=== PATIENT | female | born 1985 | race African-American/Black ===

== ENCOUNTER 2018-11-03 16:50 | Emergency (ER) | payer SELFPAY ==
[~2018-11-03] VITALS: Ht 167.6 cm; Wt 61.0 kg
[2018-11-03] MEDS ORDERED: ONDANSETRON HCL 4MG/2ML INJ IV STA (17:29)
[2018-11-03] MEDS ORDERED: SODIUM CHLORIDE 0.9% 1,000 ML IV ONE (17:29)
[2018-11-03] MEDS ORDERED: MORPHINE SULFATE 4 MG/ML CPJ (NOT FOR IM USE) IV STA (17:29)
[2018-11-03 17:52] LABS: BASOPHILS % 0.3 % (0.0-2.0); EOSINOPHILS % 0.3 % (0.0-5.0); HEMATOCRIT. 30.4 % (36.0-48.0); LYMPHOCYTES % 10.1 % (20.0-50.0); MEAN CORPUSCULAR HEMOGLOBIN 26.2 pg (28.0-32.0); MEAN CORPUSCULAR VOLUME 79.6 fL (81.0-99.0); MEAN PLATELET VOLUME 6.8 fl (7.4-10.4); MONOCYTES % 5.6 % (2.0-8.0); NEUTROPHILS % 83.7 % (40.0-76.0); PLATELET 325 x1000/uL (130-400); RED BLOOD CELL COUNT 3.82 mill/uL (4.2-5.4); RED CELL DISTRIBUTION WIDTH 14.2 % (11.6-14.6)
[2018-11-03 17:58] LABS: CHLORIDE 107 mEq/L (98-107); INR 1.1; PROTHROMBIN TIME 10.9 sec (9.1-11.1)
[2018-11-03 17:59] LABS: HCG SCREEN NEGATIVE
[2018-11-03 18:54] LABS: CLARITY URINE CLOUDY (CLEAR); COLOR URINE YELLOW (YELLOW); KETONES URINE NEGATIVE (NEGATIVE); LEUKOCYTE ESTERASE URINE NEGATIVE (NEGATIVE); NITRITE URINE NEGATIVE (NEGATIVE); OCCULT BLOOD URINE 3+ (NEGATIVE); PH URINE 8.5 (4.5-8.0); PROTEIN URINE NEGATIVE (NEGATIVE); SPECIFIC GRAVITY URINE 1.006 (1.005-1.030); UROBILINOGEN URINE 0.2 E.U./dL (0.2-1.0)
[2018-11-03] MEDS ORDERED: MORPHINE SULFATE 4 MG/ML CPJ (NOT FOR IM USE) IV ONE (20:15)
[2018-11-03] MEDS ORDERED: ONDANSETRON HCL 4MG/2ML INJ IV ONE (20:15)
[2018-11-03] MEDS ORDERED: KETOROLAC 30MG/ML VIAL IV ONE (20:15)
[2018-11-03 21:12] VITALS: BP 115/55
== END 2018-11-03 21:13 | disposition home or self-care (01) ==
LOC: ER 16:50
DX: N30.90 Cystitis, unspecified without hematuria (principal); N23 Unspecified renal colic; D17.9 Benign lipomatous neoplasm, unspecified
CPT/HCPCS: 36415; 74176; 80053; 81003; 83690; 84703; 85025; 85610; 96361; 96374; 96375; 96376; 99284; J1885; J2270; J2405; J7030

== ENCOUNTER 2019-06-27 13:39 | Emergency (ER) | payer MEDICAID ==
[~2019-06-27] VITALS: Ht 165.1 cm; Wt 61.0 kg
[2019-06-27] MEDS ORDERED: MORPHINE SULFATE 4 MG/ML CPJ (NOT FOR IM USE) IV STA (15:02)
[2019-06-27] MEDS ORDERED: KETOROLAC 30MG/ML VIAL IV STA (15:02)
[2019-06-27] MEDS ORDERED: ONDANSETRON HCL 4MG/2ML INJ IV STA (15:02)
[2019-06-27] MEDS ORDERED: SODIUM CHLORIDE 0.9% 1,000 ML IV ONE (15:02)
[2019-06-27] MEDS ORDERED: FAMOTIDINE 20MG/2ML VIAL IV STA (15:02)
[2019-06-27 15:35] LABS: CHLORIDE 105 mEq/L (98-107)
[2019-06-27 15:36] LABS: INR 1.1; PROTHROMBIN TIME 11.4 sec (9.6-11.0)
[2019-06-27 15:37] LABS: HCG SCREEN NEGATIVE
[2019-06-27 15:38] LABS: ETHANOL BLOOD < 10 mg/dL
[2019-06-27 15:44] LABS: HEMATOCRIT. 27.5 % (36.0-48.0); HEMOGLOBIN. 8.5 g/dL (12.0-16.0); MEAN CORPUSCULAR HEMOGLOBIN 19.1 pg (28.0-32.0); MEAN CORPUSCULAR VOLUME 61.9 fL (81.0-99.0); MEAN PLATELET VOLUME 7.1 fl (7.4-10.4); PLATELET 382 x1000/uL (130-400); RED BLOOD CELL COUNT 4.43 mill/uL (4.2-5.4); RED CELL DISTRIBUTION WIDTH 18.5 % (11.6-14.6)
[2019-06-27 15:45] LABS: CLARITY URINE CLEAR (CLEAR); COLOR URINE YELLOW (YELLOW); KETONES URINE TRACE (NEGATIVE); LEUKOCYTE ESTERASE URINE NEGATIVE (NEGATIVE); NITRITE URINE NEGATIVE (NEGATIVE); OCCULT BLOOD URINE NEGATIVE (NEGATIVE); PH URINE 7.5 (4.5-8.0); PROTEIN URINE 1+ (NEGATIVE); SPECIFIC GRAVITY URINE 1.032 (1.005-1.030); UROBILINOGEN URINE 0.2 E.U./dL (0.2-1.0)
[2019-06-27 16:11] LABS: PLATELET ESTIMATE NORMAL
[2019-06-27 18:15] VITALS: BP 126/74
[2019-06-27 23:19] LABS: *AMPHETAMINES SCREEN URINE NEGATIVE (NEGATIVE)
[2019-06-27 23:20] LABS: *BARBITURATES SCREEN URINE NEGATIVE (NEGATIVE); *BENZODIAZEPINES SCREEN URINE NEGATIVE (NEGATIVE)
[2019-06-27 23:21] LABS: *COCAINE SCREEN URINE NEGATIVE (NEGATIVE); METHADONE URINE SCREEN NEGATIVE (NEGATIVE)
[2019-06-27 23:23] LABS: OPIATES URINE SCREEN NEGATIVE (NEGATIVE); PHENCYCLIDINE URINE SCREEN NEGATIVE (NEGATIVE)
[2019-06-27 23:28] LABS: CANNABINOID URINE SCREEN PRESUMTIVE POSITIVE (NEGATIVE)
== END 2019-06-27 18:16 | disposition home or self-care (01) ==
LOC: ER 13:39
DX: R10.2 Pelvic and perineal pain (principal); R11.2 Nausea with vomiting, unspecified; E87.6 Hypokalemia; D64.9 Anemia, unspecified
CPT/HCPCS: 36415; 74176; 80053; 80305; 80320; 81003; 81025; 83690; 84703; 85025; 85610; 96361; 96374; 96375; 99284; J1885; J2405; J3490; J7030; J2270; G0480

== ENCOUNTER 2019-08-18 06:15 | Emergency (ER) | payer MEDICAID ==
[~2019-08-18] VITALS: Ht 165.1 cm; Wt 61.0 kg
[2019-08-18] MEDS ORDERED: KETOROLAC 30MG/ML VIAL IV STA (07:14)
[2019-08-18 07:55] LABS: HEMATOCRIT. 25.5 % (36.0-48.0); HEMOGLOBIN. 7.9 g/dL (12.0-16.0); MEAN CORPUSCULAR HEMOGLOBIN 19.2 pg (28.0-32.0); MEAN CORPUSCULAR VOLUME 62.2 fL (81.0-99.0); MEAN PLATELET VOLUME 6.6 fl (7.4-10.4); PLATELET 402 x1000/uL (130-400); RED BLOOD CELL COUNT 4.09 mill/uL (4.2-5.4); RED CELL DISTRIBUTION WIDTH 20.6 % (11.6-14.6)
[2019-08-18] MEDS ORDERED: ONDANSETRON HCL 4MG/2ML INJ IV ONE (08:00)
[2019-08-18 08:01] LABS: CHLORIDE 108 mEq/L (98-107)
[2019-08-18 08:04] LABS: CLARITY URINE TURBID (CLEAR); COLOR URINE YELLOW (YELLOW); KETONES URINE NEGATIVE (NEGATIVE); LEUKOCYTE ESTERASE URINE NEGATIVE (NEGATIVE); NITRITE URINE NEGATIVE (NEGATIVE); OCCULT BLOOD URINE NEGATIVE (NEGATIVE); PH URINE 8.5 (4.5-8.0); PROTEIN URINE NEGATIVE (NEGATIVE); SPECIFIC GRAVITY URINE 1.019 (1.005-1.030); UROBILINOGEN URINE 0.2 E.U./dL (0.2-1.0)
[2019-08-18] MEDS ORDERED: ONDANSETRON HCL 4MG/2ML INJ IV STA (08:31)
[2019-08-18] MEDS ORDERED: MORPHINE SULFATE 4 MG/ML CPJ (NOT FOR IM USE) IV STA (08:31)
[2019-08-18 08:33] LABS: PLATELET ESTIMATE INCREASED
[2019-08-18 09:24] VITALS: BP 119/80
== END 2019-08-18 09:27 | disposition home or self-care (01) ==
LOC: ER 06:15
DX: D25.9 Leiomyoma of uterus, unspecified (principal); D64.9 Anemia, unspecified; Z98.890 Other specified postprocedural states
CPT/HCPCS: 36415; 76830; 76856; 80053; 81003; 81025; 83690; 85025; 96374; 96375; 99284; J1885; J2270; J2405; Z7610

== ENCOUNTER 2020-01-12 15:15 | Emergency (ER) | payer MEDICAID ==
[~2020-01-12] VITALS: Ht 165.1 cm; Wt 70.0 kg
[2020-01-12 15:18] VITALS: BP 115/70
[2020-01-12] MEDS ORDERED: IBUPROFEN 600MG TABLET PO ONE (16:00)
== END 2020-01-12 16:46 | disposition home or self-care (01) ==
LOC: ER 15:15
DX: R05 Cough (principal); Z20.828 Contact with and (suspected) exposure to other viral communicable diseases
CPT/HCPCS: 71045; 99284; U0003

== ENCOUNTER 2021-01-08 12:28 | Emergency (ER) | payer MEDICAID ==
[~2021-01-08] VITALS: Ht 165.1 cm; Wt 64.0 kg
[2021-01-08] MEDS ORDERED: PEN G BENZ/PEN G PROCAINE CR 1.2 MMU/2 ML IM ONE (13:15)
[2021-01-08 14:19] LABS: HEMATOCRIT. 28.5 % (36.0-48.0); HEMOGLOBIN. 8.9 g/dL (12.0-16.0); MEAN CORPUSCULAR HEMOGLOBIN 19.4 pg (28.0-32.0); MEAN CORPUSCULAR VOLUME 62.1 fL (81.0-99.0); MEAN PLATELET VOLUME 6.9 fl (7.4-10.4); PLATELET 418 x1000/uL (130-400); RED BLOOD CELL COUNT 4.59 mill/uL (4.2-5.4); RED CELL DISTRIBUTION WIDTH 18.6 % (11.6-14.6)
[2021-01-08 14:22] LABS: CLARITY URINE CLOUDY (CLEAR); COLOR URINE YELLOW (YELLOW); KETONES URINE NEGATIVE (NEGATIVE); LEUKOCYTE ESTERASE URINE NEGATIVE (NEGATIVE); NITRITE URINE NEGATIVE (NEGATIVE); OCCULT BLOOD URINE NEGATIVE (NEGATIVE); PROTEIN URINE NEGATIVE (NEGATIVE); SPECIFIC GRAVITY URINE 1.009 (1.005-1.030); UROBILINOGEN URINE 0.2 E.U./dL (0.2-1.0)
[2021-01-08 14:25] LABS: CHLORIDE 107 mEq/L (98-107)
[2021-01-08] MEDS ORDERED: VISCOUS LIDOCAINE 2% 15 ML UDC MM PRN (14:45)
[2021-01-08 15:01] VITALS: BP 119/76
[2021-01-08 15:10] LABS: NUCLEATED RED BLOOD CELLS 1 /100 WBC; PLATELET ESTIMATE SLIGHTLY INCREASED
== END 2021-01-08 15:28 | disposition home or self-care (01) ==
LOC: ER 12:28
DX: R55 Syncope and collapse (principal); J02.8 Acute pharyngitis due to other specified organisms
CPT/HCPCS: 36415; 80053; 81003; 82962; 85025; 93005; 96372; 99284; J0558

== ENCOUNTER 2021-06-21 21:40 | Emergency (ER) | payer MEDICAID ==
[~2021-06-21] VITALS: Ht 162.6 cm; Wt 69.0 kg
[2021-06-21] MEDS ORDERED: MORPHINE SULFATE 4 MG/ML CPJ (NOT FOR IM USE) IV STA (23:33)
[2021-06-21] MEDS ORDERED: ONDANSETRON HCL 4MG/2ML INJ IV STA (23:33)
[2021-06-21] MEDS ORDERED: SODIUM CHLORIDE 0.9% 1,000 ML IV ONE (23:45)
[2021-06-22 00:03] LABS: BASOPHILS % 0.2 % (0.0-2.0); EOSINOPHILS % 0.1 % (0.0-5.0); HEMATOCRIT. 37.7 % (36.0-48.0); HEMOGLOBIN. 12.5 g/dL (12.0-16.0); LYMPHOCYTES % 8.3 % (20.0-50.0); MEAN CORPUSCULAR HEMOGLOBIN 27.6 pg (28.0-32.0); MEAN CORPUSCULAR VOLUME 83.2 fL (81.0-99.0); MEAN PLATELET VOLUME 7.2 fl (7.4-10.4); MONOCYTES % 4.9 % (2.0-8.0); NEUTROPHILS % 86.5 % (40.0-76.0); PLATELET 324 x1000/uL (130-400); RED BLOOD CELL COUNT 4.53 mill/uL (4.2-5.4); RED CELL DISTRIBUTION WIDTH 13.6 % (11.6-14.6)
[2021-06-22 00:14] LABS: CHLORIDE 107 mEq/L (98-107)
[2021-06-22 00:15] LABS: HCG SCREEN NEGATIVE
[2021-06-22 00:48] LABS: CLARITY URINE CLEAR (CLEAR); COLOR URINE YELLOW (YELLOW); KETONES URINE NEGATIVE (NEGATIVE); LEUKOCYTE ESTERASE URINE NEGATIVE (NEGATIVE); NITRITE URINE NEGATIVE (NEGATIVE); OCCULT BLOOD URINE 1+ (NEGATIVE); PH URINE 7.5 (4.5-8.0); PROTEIN URINE NEGATIVE (NEGATIVE); SPECIFIC GRAVITY URINE 1.006 (1.005-1.030); UROBILINOGEN URINE 0.2 E.U./dL (0.2-1.0)
[2021-06-22] MEDS ORDERED: IBUP-2029 MT (03:25)
[2021-06-22 03:45] VITALS: BP 119/66
== END 2021-06-22 03:58 | disposition home or self-care (01) ==
LOC: ER 21:40
DX: D25.0 Submucous leiomyoma of uterus (principal); N83.209 Unspecified ovarian cyst, unspecified side
CPT/HCPCS: 36415; 74176; 76830; 76856; 80053; 81003; 81025; 83605; 83690; 84703; 85025; 93005; 96361; 96374; 96375; 99285; J2270; J2405; J7030

== ENCOUNTER 2022-07-04 06:13 | Emergency (ER) | payer MEDICAID, OTHER ==
[~2022-07-04] VITALS: Ht 165.1 cm; Wt 86.0 kg
[~2022-07-04 06:13] MED LIST: IBUP-2029 MT
[2022-07-04] MEDS ORDERED: TOPUD PO (07:43)
[2022-07-04 10:21] LABS: BASOPHILS % 0.4 % (0.0-2.0); EOSINOPHILS % 0.6 % (0.0-5.0); HEMATOCRIT. 30.4 % (36.0-48.0); HEMOGLOBIN. 9.5 g/dL (12.0-16.0); LYMPHOCYTES % 51.7 % (20.0-50.0); MEAN CORPUSCULAR VOLUME 70.1 fL (81.0-99.0); MEAN PLATELET VOLUME 7.1 fl (7.4-10.4); MONOCYTES % 11.1 % (2.0-8.0); NEUTROPHILS % 36.2 % (40.0-76.0); PLATELET 364 x1000/uL (130-400); RED BLOOD CELL COUNT 4.34 mill/uL (4.2-5.4); RED CELL DISTRIBUTION WIDTH 16.7 % (11.6-14.6)
[2022-07-04 10:30] LABS: CHLORIDE 105 mEq/L (98-107)
[2022-07-04 11:07] LABS: HCG SCREEN NEGATIVE
[2022-07-04] MEDS ORDERED: ONDANSETRON 4MG ODT PO ONE (11:45)
[2022-07-04] MEDS ORDERED: ALBU6.7H3 INH (12:17)
[2022-07-04] MEDS ORDERED: ONDA4TAB11 PO (12:17)
[2022-07-04] MEDS ORDERED: IMOD MT (12:17)
[2022-07-04] MEDS ORDERED: GUAI600T26 MT (12:17)
[2022-07-04] MEDS ORDERED: IBUP-2029 MT (12:17)
[2022-07-04 12:37] VITALS: BP 110/67
== END 2022-07-04 12:39 | disposition home or self-care (01) ==
LOC: ER 06:13
DX: R55 Syncope and collapse (principal); J06.9 Acute upper respiratory infection, unspecified; R11.2 Nausea with vomiting, unspecified; R19.7 Diarrhea, unspecified; J02.9 Acute pharyngitis, unspecified; D64.9 Anemia, unspecified; Z79.899 Other long term (current) drug therapy
CPT/HCPCS: 36415; 71045; 80053; 83690; 84703; 85025; 99284; Q0162